=== PATIENT | female | born 1990 | race Caucasian/White ===

== ENCOUNTER 2017-09-02 15:40 | Emergency (ER) | payer OTHER ==
[2017-09-02 15:57] VITALS: BP 147/72; PULSE 86; TEMP 98.2; BMI 43.0
--- NOTE | 2017-09-02 15:57 | PDOC ---
Rapid Medical Evaluation Time Seen by Provider: 09/02/17 15:53 Medical Evaluation: Allergies Allergy/AdvReac Type Severity Reaction Status Date / Time No Known Allergies Allergy Verified 09/02/17 15:54 09/02/17 15:55 I have performed a brief in-person evaluation of this patient. 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 Sexually active w/ , no h/o stds Pertinent physical exam findings:will defer pelvic exam to FT provider I have ordered the following:ua/upreg/stds The patient will proceed to the ED for further evaluation. Discharge Disposition - Diagnosis Vaginal lesion - Referrals - Patient Instructions - Post Discharge Activity
--- NOTE | 2017-09-02 17:01 | PDOC ---
History of Present Illness - General Chief Complaint: Vaginal Sxs Stated Complaint: VAGINAL PROBLEM Time Seen by Provider: 09/02/17 15:53 History Source: Patient Exam Limitations: No Limitations - History of Present Illness Initial Comments: 09/02/17 16:56 27 yr old female no past medical with c/o burning on urination. Pt states he fiance has penile itching. Pt denies vaginal discharge states she sometimes has "cuts in her vagina" that heal on their own. no cuts today. no abd pain or back pain. Past History - Past Medical History Allergies/Adverse Reactions: Allergies Allergy/AdvReac Type Severity Reaction Status Date / Time No Known Allergies Allergy Verified 09/02/17 15:54 Home Medications: Ambulatory Orders NK [No Known Home Medication] 09/02/17 Asthma: No Cancer: No Cardiac Disorders: No CVA: No COPD: No Diabetes: No HTN: No Seizures: No Thyroid Disease: No Other medical history: DENIES. - Suicide/Smoking/Psychosocial Hx Smoking Status: No Smoking History: Never smoked Have you smoked in the past 12 months: No Number of Cigarettes Smoked Daily: 0 Hx Alcohol Use: No Drug/Substance Use Hx: No Substance Use Type: None Hx Substance Use Treatment: No Review of Systems - Review of Systems Able to Perform ROS?: Yes Is the patient limited Lao proficient: No Constitutional: No: Symptoms Reported HEENTM: No: Symptoms Reported Respiratory: No: Symptoms reported Cardiac (ROS): No: Symptoms Reported ABD/GI: No: Symptoms Reported : Yes: Symptoms Reported *Physical Exam - Vital Signs Last Vital Signs Temp Pulse Resp BP Pulse Ox 98.2 F 86 17 147/72 99 09/02/17 15:54 09/02/17 15:54 09/02/17 15:54 09/02/17 15:54 09/02/17 15:54 - Physical Exam General Appearance: Yes: Nourished, Appropriately Dressed HEENT: positive: EOMI, AINSLEY Neck: positive: Supple. negative: Tender Respiratory/Chest: positive: Lungs Clear, Normal Breath Sounds Cardiovascular: positive: Regular Rhythm, Regular Rate Female Pelvic Exam: positive: normal external exam, normal adnexa. negative: CMT, discharge Gastrointestinal/Abdominal: positive: Normal Bowel Sounds, Soft Musculoskeletal: positive: Normal Inspection Extremity: positive: Normal Capillary Refill, Normal Inspection, Normal Range of Motion Integumentary: positive: Normal Color, Dry, Warm Neurologic: positive: reservation agent II-XII NML intact, Fully Oriented, Alert, Normal Mood/ Affect, Normal Response, Motor Strength 06/25 Medical Decision Making - Medical Decision Making 09/02/17 17:03 cc: pain with urination no discharge or pain will send cultures , UA no need to treat as of now, will wait for results. *DC/Admit/Observation/Transfer Diagnosis at time of Disposition: Dysuria - Discharge Dispostion Disposition: HOME Condition at time of disposition: Good - Referrals - Patient Instructions Additional Instructions: we will call you with any positive results on the cultures done today make sure you follow with your children's tutor nursery - Post Discharge Activity
[2017-09-02 17:24] LABS: HCG,QUALITATIVE URINE NEGATIVE
[2017-09-02 17:54] LABS: URINE APPEARANCE SLCLOUDY; URINE BILIRUBIN NEGATIVE (<2.0 mg/dL); URINE COLOR YELLOW; URINE GLUCOSE (UA) NEGATIVE (NEGATIVE); URINE KETONE NEGATIVE (NEGATIVE); URINE LEUK ESTERASE NEGATIVE (NEGATIVE); URINE NITRITE NEGATIVE (NEGATIVE); URINE UROBILINOGEN NEGATIVE mg/dL (0.2-1.0)
[2017-09-02 17:59] LABS: URINE PROTEIN 1+ (NEGATIVE)
[2017-09-02 19:07] LABS: EPI CELLS FEW /HPF (FEW); URINE BACTERIA RARE /hpf (NONE SEEN); URINE MUCUS MANY
== END 2017-09-02 18:13 | disposition home or self-care (01) ==
LOC: JERFT 15:40
DX: N89.8 Other specified noninflammatory disorders of vagina (principal)
CPT/HCPCS: 36415; 81003; 81015; 84703; 87070; 87205; 87252; 87491; 87591; 99281-25

== ENCOUNTER 2018-03-03 18:44 | Emergency (ER) | payer OTHER ==
[2018-03-03 18:51] VITALS: BP 111/51; PULSE 76; TEMP 97.7; BMI 42.0
--- NOTE | 2018-03-03 18:51 | PDOC ---
Rapid Medical Evaluation Time Seen by Provider: 03/03/18 18:47 Medical Evaluation: Allergies Allergy/AdvReac Type Severity Reaction Status Date / Time No Known Allergies Allergy Verified 03/03/18 18:47 03/03/18 18:49 Pt c/o: nasal congestion and sinus pressure, no fever, took dayquil at 11am, no improvement Pt on brief exam: vss, lcta Pt ordered for: none' pt to proceed to the ED Discharge Disposition - Diagnosis Nasal congestion - Referrals - Patient Instructions - Post Discharge Activity
[2018-03-03] MEDS ORDERED: DEXAMETHASONE 4 MG TABLET (FP) PO ONE (19:43)
[2018-03-03] MEDS ORDERED: DEXAMETHASONE SOD PHOSPHATE 10 MG/1 ML VIAL ONE (19:49)
--- NOTE | 2018-03-03 19:58 | PDOC ---
History of Present Illness - General Chief Complaint: Cold Symptoms Stated Complaint: Cold Symptoms Time Seen by Provider: 03/03/18 18:47 History Source: Patient Exam Limitations: No Limitations - History of Present Illness Initial Comments: 03/03/18 19:57 HISTORY OF PRESENT ILLNESS: 27-year-old woman denies medical history presents emergency department for evaluation of nasal congestion, rhinorrhea, sore throat , dry cough, headaches and body aches for the past 4 days. 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 She denies any fevers, chills, chest pain, shortness of breath, nausea, vomiting. No recent travel or sick contacts. PAST MEDICAL HISTORY: Denies past medical history SURGICAL HISTORY: Denies ALLERGIES: No known drug allergies REVIEW OF SYSTEMS General/Constitutional: +fever. Denies weakness, weight change. HEENT: Denies change in vision. Denies ear pain or discharge. +sore throat. Cardiovascular: Denies chest pain or shortness of breath. Respiratory: Moist productive cough. Denies wheezing, or hemoptysis. Gastrointestinal: Denies nausea, vomiting, diarrhea or constipation. Denies rectal bleeding. Genitourinary: Denies dysuria, frequency, or change in urination. Musculoskeletal: +myalgias. Denies neck or back pain. Skin and breasts: Denies rash or easy bruising. Neurologic: Denies headache, vertigo, loss of consciousness, or loss of sensation. Psychiatric: Denies depression or anxiety. Endocrine: Denies increased thirst. Denies abnormal weight change. Hematologic/Lymphatic: Denies anemia, easy bleeding, or history of blood clots. Allergic/Immunologic: Denies hives or skin allergy. Denies latex allergy. PHYSICAL EXAM General Appearance: Well-appearing, appropriately dressed. No apparent distress , no intoxication. HEENT: EOMI, PERRLA, normal voice, TMs retracted bilaterally. No conjunctival pallor. No photophobia, scleral icterus. Oropharynx erythematous without lesions or exudate. Cobblestoning noted in the posterior. No nasal discharge present. Neck: Supple. Trachea midline. No tenderness, rigidity, carotid bruit, stridor , or thyromegaly. Nontender anterior cervical lymphadenopathy present. Respiratory/Chest: Lungs CTAB. No shortness of breath, chest tenderness, respiratory distress, accessory muscle use. No crackles, rales, rhonchi, stridor , wheezing, dullness Cardiovascular: RRR. S1, S2. No JVD, murmur, bradycardia, tachycardia. Vascular Pulses: Dorsalis-Pedis (R): 2+, Dorsalis-Pedis (L): 2+ Gastrointestinal/Abdominal: Normal bowel sounds. Abdomen soft, non-distended. No tenderness or rebound tenderness. No organomegaly, pulsatile mass, guarding, hernia, hepatomegaly, splenomegaly. Musculoskeletal/Extremities: Normal inspection. FROM of all extremities, normal capillary refill. Pelvis Stable. No CVA tenderness. No tenderness to extremities, pedal edema, swelling, erythema or deformity. Integumentary: Appropriate color, dry, warm. No cyanosis, erythema, jaundice or rash Neurologic: lead software architect II-XII intact. Fully oriented, alert. Appropriate mood/affect. Motor strength 5/5. No appreciable EOM palsy, facial droop or sensory deficit. Past History - Past Medical History Allergies/Adverse Reactions: Allergies Allergy/AdvReac Type Severity Reaction Status Date / Time No Known Allergies Allergy Verified 03/03/18 18:47 Home Medications: Ambulatory Orders NK [No Known Home Medication] 09/02/17 Asthma: No Cancer: No Cardiac Disorders: No CVA: No COPD: No Diabetes: No HTN: No Seizures: No Thyroid Disease: No - Suicide/Smoking/Psychosocial Hx Smoking Status: No Smoking History: Never smoked Have you smoked in the past 12 months: No Number of Cigarettes Smoked Daily: 0 Hx Alcohol Use: No Drug/Substance Use Hx: No Substance Use Type: None Hx Substance Use Treatment: No *Physical Exam - Vital Signs Last Vital Signs Temp Pulse Resp BP Pulse Ox 97.7 F 76 18 111/51 L 99 03/03/18 18:48 03/03/18 18:48 03/03/18 18:48 03/03/18 18:48 03/03/18 18:48 Moderate Sedation - Procedure Monitoring Vital Signs: Procedure Monitoring Vital Signs Temperature 97.7 F 03/03/18 18:48 Pulse Rate 76 03/03/18 18:48 Respiratory Rate 18 03/03/18 18:48 Blood Pressure 111/51 L 03/03/18 18:48 O2 Sat by Pulse Oximetry (%) 99 03/03/18 18:48 ED Treatment Course - Medications Given in the ED: ED Medications Discontinued Medications Generic Name Dose Route Start Last Admin Trade Name Derik PRN Reason Stop Dose Admin Dexamethasone 10 mg 03/03/18 19:43 03/03/18 19:54 Decadron - PO 03/03/18 19:44 10 mg ONCE ONE Administration Medical Decision Making - Medical Decision Making 03/03/18 20:47 A/P: 27-year-old female with 4 days of upper respiratory illness Strep testing Reassess Strep testing was negative we'll discharge the patient home with symptomatic treatment.I discussed the physical exam findings, ancillary test results and final diagnoses with the patient. I answered all of the patient's questions. The patient was satisfied with the care received and felt comfortable with the discharge plan and treatment plan. The patient will call their primary care physician within 24 hours to arrange follow-up and will return to the Emergency Department with any new, persistent or worsening symptoms. *DC/Admit/Observation/Transfer Diagnosis at time of Disposition: URI (upper respiratory infection) Qualifiers: URI type: acute nasopharyngitis (common cold) Qualified Code(s): J00 - Acute nasopharyngitis [common cold] - Discharge Dispostion Disposition: HOME Condition at time of disposition: Stable Decision to Admit order: No - Referrals Referrals: Kiki Ramírez [Primary Care Provider] - - Patient Instructions Additional Instructions: Rest, drink lots of fluids: Teas, water, soups, Pedialyte Saltwater gargles Steamy showers/seem to face break up mucus Avoid contact with others until fevers and cough resolved Lots of handwashing and good hygiene Continue [id number] medications for symptomatic relief Tylenol or Motrin for fever and pain Followup with private physician in one to 2 days as needed Return to emergency department for worsened symptoms, fevers, dehydration - Post Discharge Activity
== END 2018-03-03 20:51 | disposition home or self-care (01) ==
LOC: JERFT 18:44
DX: J06.9 Acute upper respiratory infection, unspecified (principal); J00 Acute nasopharyngitis [common cold]
CPT/HCPCS: 87070; 87077; 87880; 99281-25

== ENCOUNTER 2019-04-20 05:35 | Inpatient (IN) | payer OTHER ==
[~2019-04-20 05:35] MED LIST: CITRIC ACID/SODIUM CITRATE 30 ML UNIT-DOSE CUP PO ONE; ELECTROLYTE-148 SOLN 500 ML IV ONE
[2019-04-20] MEDS ORDERED: ELECTROLYTE-148 SOLN 1,000 ML IV SCH ×2 (06:00→07:30)
[2019-04-20 06:25] VITALS: BMI 44.5
[2019-04-20] MEDS ORDERED: morphine SULFATE/PF 0.5 MG/ML (2cc Syringe - QUVA) ONE (07:34)
[2019-04-20] MEDS ORDERED: ceFAZolin SODIUM 1 GM VIAL ONE (07:34)
[2019-04-20] MEDS ORDERED: PHENYLEPHRINE HCL 10 MG/1 ML SINGLE DOSE VIAL ONE (07:34)
--- NOTE | 2019-04-20 07:36 | HP ---
Past Medical History - Admission Chief Complaint: Elective History of Present Illness: 28 yo , @ 39 weeks gestation, EDC 04/29/19, with 2 previous , is pre op for repeat . History Source: Patient Limitations to Obtaining History: No Limitations - Past Medical History ...: 3 ...Para: 2 ...Term: 2 ...: 0 ...Spon : 0 ...Induced : 0 ...Multiple Gestation: 0 ...LMP: 06/28/18 ... Weeks Gestation by Dates: 38.6 ...EDC by Dates: 04/29/19 ...EDC by Sono: 04/29/19 - Past Surgical History Past Surgical History: Yes: Hx Myomectomy: No Hx Transabdominal Cerclage: No - Smoking History Smoking history: Never smoked Have you smoked in the past 12 months: No Aproximately how many cigarettes per day: 0 - Alcohol/Substance Use Hx Alcohol Use: No History of Substance Use: reports: None - Social History Usual Living Arrangement: Yes: With Significant Other History of Recent Travel: No Home Medications - Allergies Allergies/Adverse Reactions: Allergies Allergy/AdvReac Type Severity Reaction Status Date / Time No Known Allergies Allergy Verified 03/22/19 11:26 - Home Medications Home Medications: Ambulatory Orders Iron 1 tab PO BID 04/20/19 Vitamins (Sjr) - 1 tab PO DAILY 04/20/19 Review of Systems - Review of Systems Constitutional: reports: No Symptoms Eyes: reports: No Symptoms HENT: reports: No Symptoms Neck: reports: No Symptoms Cardiovascular: reports: No Symptoms Respiratory: reports: No Symptoms Gastrointestinal: reports: No Symptoms Genitourinary: reports: No Symptoms Breasts: reports: No Symptoms Reported Musculoskeletal: reports: No Symptoms Neurological: reports: No Symptoms Psychiatric: reports: No Symptoms Pain Intensity: 0 Physical Exam - Maternity Vital Signs: Vital Signs Temperature 98.2 F 04/20/19 06:17 Pulse Rate 93 H 04/20/19 06:17 Respiratory Rate 04/20/19 06:17 Blood Pressure 114/66 04/20/19 06:17 O2 Sat by Pulse Oximetry (%) Constitutional: Yes: No Distress Eyes: Yes: Conjunctiva Clear HENT: Yes: Atraumatic Neck: Yes: Supple Cardiovascular: Yes: Regular Rate and Rhythm Lungs: Clear to auscultation - Abdominal Exam/OB Number of Fetuses: Single Presentation: Vertex - Vaginal Exam/OB Vaginal Bleediing: No Speculum Exam: No - Physical Exam Musculoskeletal: Yes: WNL Extremities: Yes: WNL ...Motor Strength: WNL Psychiatric: Yes: Alert, Oriented Problem List - Problems (1) Previous section Problems reviewed: Yes Code(s): Z98.891 - HISTORY OF UTERINE SCAR FROM PREVIOUS SURGERY Assessment/Plan 39 weeks gestation Previous Pre op for repeat Consent signed Anesthesia to see patient
[2019-04-20] MEDS ORDERED: OXYTOCIN 20 UNITS in 0.9% NS 40 UNIT/2,000 ML INFUS.BAG IV ONE (07:39)
[2019-04-20] MEDS ORDERED: CITRIC ACID/SODIUM CITRATE 30 ML UNIT-DOSE CUP PO ONE (08:00)
[2019-04-20] MEDS ORDERED: DEXAMETHASONE SOD PHOSPHATE 4 MG/1 ML VIAL ONE (08:07)
[2019-04-20] MEDS ORDERED: MIDAZOLAM HCL 2 MG/2 ML SINGLE DOSE VIAL ONE (08:19)
[2019-04-20] MEDS ORDERED: KETOROLAC TROMETHAMINE 30 MG/1 ML VIAL ONE (08:32)
[2019-04-20] MEDS ORDERED: METHYLERGONOVINE MALEATE 0.2 MG/1 ML AMP IM PRN (09:09)
[2019-04-20] MEDS ORDERED: SENNOSIDES/DOCUSATE COMBO (SENNA PLUS) TABLET (UD) PO PRN (09:09)
[2019-04-20] MEDS ORDERED: IBUPROFEN 800 MG/8 ML IJ IVPB PRN (09:09)
--- NOTE | 2019-04-20 09:12 | OP ---
Operative Note - Note: Operative Date: 04/20/19 Pre-Operative Diagnosis: Elective Operation: Repeat Low Tranverse Findings: Large baby boy in cephalic position Post-Operative Diagnosis: Same as Pre-op Surgeon: Laura Arvizu Regulator Assembler: Giuseppe Garcia Anesthesia: Spinal Specimens Removed: Placenta Estimated Blood Loss (mls): 700 Operative Report Dictated: Yes
[2019-04-20] MEDS ORDERED: OXYTOCIN 20 UNITS in 0.9% NS 20 UNIT/1,000 ML INFUS.BAG IV SCH (09:15)
[2019-04-20] MEDS ORDERED: ONDANSETRON 4 MG/2 ML VIAL IVPUSH PRN (09:33)
[2019-04-20] MEDS: PRENATAL VITAMINS W/ FOLIC ACID TABLET (FP) PO SCH (10:06)
[2019-04-20] MEDS: FERROUS SO4 325 MG TABLET (FP) PO SCH ×2 (10:06→22:24)
[2019-04-21] MEDS: oxyCODONE HCL 5 MG TABLET PO PRN ×2 (08:02→18:26)
[2019-04-21] MEDS: SIMETHICONE 80 MG TAB.CHEW (FP) PO PRN ×2 (08:03→18:27)
[2019-04-21] MEDS: IBUPROFEN 600 MG TABLET (FP) PO PRN ×2 (08:03→18:27)
[2019-04-21 08:31] LABS: BASO % 0.2 % (0-2.0); EOS % 0.1 % (0-4.5); HEMOGLOBIN 8.1 GM/dL (10.7-15.3); LYMPH % 21.9 % (8-40); MCH 24.8 pg (25.7-33.7); MCHC 32.3 g/dl (32.0-36.0); MEAN CELL VOLUME 76.7 fl (80-96); MEAN PLT VOLUME 7.3 fl (7.5-11.1); MONO % 5.6 % (3.8-10.2); NEUT % 72.2 % (42.8-82.8); PLATELET COUNT 202 K/MM3 (134-434); RBC 3.26 M/mm3 (3.60-5.2); RDW 17.2 % (11.6-15.6); WHITE BLOOD COUNT 10.4 K/mm3 (4.0-10.0)
--- NOTE | 2019-04-21 08:32 | PN ---
Progress Note (short form) - Note Progress Note: Anesthesia/pain Pt seen and examined S:Alert and awake comfortable O: Vital Signs Temperature 97.7 F 04/21/19 06:00 Pulse Rate 78 04/21/19 06:00 Respiratory Rate 20 04/21/19 06:00 Blood Pressure 111/53 L 04/21/19 06:00 O2 Sat by Pulse Oximetry (%) 97 04/20/19 10:05 A/P: Current Active Problems Previous section (Acute) s/p c section Doing well post op Continue current care Raciel Chawla MD
[2019-04-21] MEDS ORDERED: BISACODYL 10 MG SUPP.RECT RC PRN (09:09)
[2019-04-21] MEDS: FERROUS SO4 325 MG TABLET (FP) PO SCH ×2 (09:59→21:59)
[2019-04-21] MEDS: PRENATAL VITAMINS W/ FOLIC ACID TABLET (FP) PO SCH (09:59)
[2019-04-21] MEDS ORDERED: FLU VACC QS2019-20(6MOS UP)/PF 60 MCG/0.5 ML SYRINGE IM ONE (10:00)
[2019-04-21] MEDS ORDERED: DIPHTH,PERTUSS(ACELL),TET 0.5 ML DISP.SYRIN IM ONE (10:00)
[2019-04-21] MEDS ORDERED: FLU VACCINE QUAD 60 MCG/0.5 ML (MDV 19-20) IM ONE (10:00)
[2019-04-22] MEDS: oxyCODONE HCL 5 MG TABLET PO PRN ×3 (00:21→23:42)
[2019-04-22] MEDS: IBUPROFEN 600 MG TABLET (FP) PO PRN ×2 (04:41→18:50)
[2019-04-22] MEDS: SIMETHICONE 80 MG TAB.CHEW (FP) PO PRN ×3 (04:41→18:50)
--- NOTE | 2019-04-22 04:56 | PN ---
Post Progress Note - Subjective Subjective: Status post repeat . Doing well Post Day: 2 Type of Delivery: Repeat C/S Vital Signs: Vital Signs Temperature 97.9 F 04/21/19 22:00 Pulse Rate 90 04/21/19 22:00 Respiratory Rate 20 04/21/19 22:00 Blood Pressure 117/62 04/21/19 22:00 O2 Sat by Pulse Oximetry (%) 98 04/21/19 21:00 Uterus: Yes: Fundus below umbilicus Incision: Yes: Dressing dry and intact Abdomen/GI: Yes: Abdomen soft, Tolerating PO Lochia: Yes: Rubra Lochia, amount: Small Extremities: Yes: Calves non-tender Perineum: Yes: Intact Activity: Ambulating - Labs Labs: CBC WBC 10.4 K/mm3 (4.0-10.0) H 04/21/19 07:58 RBC 3.26 M/mm3 (3.60-5.2) L 04/21/19 07:58 Hgb 8.1 GM/dL (10.7-15.3) L 04/21/19 07:58 Hct 25.0 % (32.4-45.2) L D 04/21/19 07:58 MCV 76.7 fl (80-96) L 04/21/19 07:58 MCH 24.8 pg (25.7-33.7) L 04/21/19 07:58 MCHC 32.3 g/dl (32.0-36.0) 04/21/19 07:58 RDW 17.2 % (11.6-15.6) H 04/21/19 07:58 Plt Count 202 K/MM3 (134-434) D 04/21/19 07:58 MPV 7.3 fl (7.5-11.1) L 04/21/19 07:58 Absolute Neuts (auto) 7.5 K/mm3 (1.5-8.0) 04/21/19 07:58 Neutrophils % 72.2 % (42.8-82.8) 04/21/19 07:58 Lymphocytes % 21.9 % (8-40) 04/21/19 07:58 Monocytes % 5.6 % (3.8-10.2) 04/21/19 07:58 Eosinophils % 0.1 % (0-4.5) 04/21/19 07:58 Basophils % 0.2 % (0-2.0) 04/21/19 07:58 Nucleated RBC % 0 % (0-0) 04/21/19 07:58 Problem List - Problems (1) Previous section Problems reviewed: Yes Code(s): Z98.891 - HISTORY OF UTERINE SCAR FROM PREVIOUS SURGERY (2) Status post repeat low transverse section Problems reviewed: Yes Code(s): Z98.891 - HISTORY OF UTERINE SCAR FROM PREVIOUS SURGERY Assessment/Plan Status post repeat Low Transverse Ambulation Analgesia as needed Continue routine post op care
[2019-04-22] MEDS: FERROUS SO4 325 MG TABLET (FP) PO SCH ×2 (09:20→21:28)
[2019-04-22] MEDS: PRENATAL VITAMINS W/ FOLIC ACID TABLET (FP) PO SCH (09:20)
[2019-04-23] MEDS: oxyCODONE HCL 5 MG TABLET PO PRN (04:38)
[2019-04-23] MEDS: IBUPROFEN 600 MG TABLET (FP) PO PRN ×2 (04:39→10:41)
--- NOTE | 2019-04-23 07:29 | DS ---
Physical Exam-INVESTMENT ACCOUNTING CLERK Vital Signs: Vital Signs Temperature 97.8 F 04/22/19 21:15 Pulse Rate 96 H 04/22/19 21:15 Respiratory Rate 20 04/22/19 21:15 Blood Pressure 128/75 04/22/19 21:15 O2 Sat by Pulse Oximetry (%) 98 04/22/19 20:38 Constitutional: Yes: Well Nourished, No Distress Gastrointestinal: Yes: WNL, Soft ....Post : Yes: Uterus firm, Uterus non-tender Breast(s): Yes: WNL Musculoskeletal: Yes: WNL Delivery - Delivery Type of Anesthesia: Spinal EBL (cc): 700 Delivery, Single - Stages of Labor Date of Delivery: 04/20/19 Time of Delivery: 08:14 Time Placenta Delivered: 08:15 - Condition of Infant General Milling Superintendent/Duct Maker Present: Yes Name: Anusha Sultana Gender: Male Weight: 8 lb 5 oz Position: Right, OT Total Hours ROM (Hrs/Mins): 0Hrs/3Mins - 1 Minute Total Score: 9 5 Minutes Total Score: 9 - [place] Feeding Plan Initial Plan: Elected not to breastfeed exclusively throughout hospitalization Discharge Summary Problems reviewed: Yes Reason For Visit: ADMIT SCHEDULED Current Active Problems Previous section (Acute) Status post repeat low transverse section (Acute) Procedures: Principal: Repeat Section Condition: Good - Instructions Referrals: Laura Arvizu MD [Staff Physician] - Disposition: HOME - Home Medications Comprehensive Discharge Medication List: Ambulatory Orders Iron 1 tab PO BID 04/20/19 Vitamins (Sjr) - 1 tab PO DAILY 04/20/19
[2019-04-23 07:35] LABS: BASO % 0.6 % (0-2.0); EOS % 1.8 % (0-4.5); HEMATOCRIT 26.3 % (32.4-45.2); HEMOGLOBIN 8.5 GM/dL (10.7-15.3); LYMPH % 32.6 % (8-40); MCH 24.9 pg (25.7-33.7); MCHC 32.4 g/dl (32.0-36.0); MEAN CELL VOLUME 76.8 fl (80-96); MEAN PLT VOLUME 7.3 fl (7.5-11.1); MONO % 7.3 % (3.8-10.2); NEUT % 57.7 % (42.8-82.8); PLATELET COUNT 247 K/MM3 (134-434); RBC 3.43 M/mm3 (3.60-5.2); RDW 17.2 % (11.6-15.6); WHITE BLOOD COUNT 5.9 K/mm3 (4.0-10.0)
[2019-04-23 09:13] VITALS: BP 104/60; PULSE 79; TEMP 97.6
[2019-04-23] MEDS: SIMETHICONE 80 MG TAB.CHEW (FP) PO PRN (10:43)
[2019-04-23] MEDS: FERROUS SO4 325 MG TABLET (FP) PO SCH (10:43)
[2019-04-23] MEDS: PRENATAL VITAMINS W/ FOLIC ACID TABLET (FP) PO SCH (10:43)
--- NOTE | 2019-04-23 21:25 | OP ---
DATE OF OPERATION: 04/20/2019 PREOPERATIVE DIAGNOSIS: A 39-week gestation with previous section. POSTOPERATIVE DIAGNOSIS: A 39-week gestation with previous section. PROCEDURE: Repeat low transverse section. SURGEON: Laura Arvizu MD ENERGY CROP FARMER: ANITRA Zavaleta ANESTHESIA: Spinal. COMPLICATIONS: None. ESTIMATED BLOOD LOSS: 700 mL. DESCRIPTION OF PROCEDURE: Patient was taken to the operating room where spinal anesthesia was administered. Patient was then prepped and draped in proper sterile fashion. A Pfannenstiel skin incision was made and carried down to the underlying layer of fascia. The fascia was incised in the midline and extended laterally. The superior aspect of the fascial incision was then grasped with a Seymour clamp, elevated, and the rectus muscle dissected off bluntly. Attention was then turned to the inferior aspect of the fascial incision which, in a similar fashion, was then grasped with a Seymour clamp, elevated, and the rectus muscle was dissected off bluntly. The rectus muscle was then in the midline. The peritoneum identified and entered sharply with the Metzenbaum scissors. This incision was extended superiorly and inferiorly with good visualization of the bladder. A bladder blade was inserted, and the vesicouterine peritoneum was then grasped with a pickup and entered sharply with the Metzenbaum scissors. This incision was extended laterally and a bladder flap created digitally. The bladder blade was reinserted, and the lower uterine segment was then incised with a 10 blade. This incision was extended laterally and the head delivered atraumatically. Nose and mouth were suctioned and the cord clamped and cut. The was handed to the waiting legal director. The placenta was removed manually. The uterus exteriorized and cleared of all clots and debris. The uterine incision was repaired using a 0 Biosyn in a running locked fashion. A second layer of the same suture was used as a means to provide excellent hemostasis. The pelvis was then completely irrigated. The uterus was returned to the abdomen. The peritoneum was closed using 0 Biosyn, and the fascia was reapproximated using 0 Vicryl in a running fashion. The skin was closed in a subcuticular fashion using 3-0 Vicryl. Patient tolerated the procedure well. Patient was then taken to PACU in stable condition. PATHOLOGY: Placenta. Quirino [id number]
--- NOTE | 2019-04-27 17:53 | PATH ---
Surgical Pathology Report Patient Name: RHONDA MUHAMMAD Med. Rec. #: [id number] /Age/Gender: 1990 (Age: 28) / F Account: [id number] Location: [facility] OBS/UPPER STITCHER Taken: 04/20/2019 Received: 04/23/2019 Reported: 04/27/2019 Physicians: Laura Arvizu M.D. Specimen(s) Received PLACENTA Clinical History , 38.6 weeks Final Diagnosis PLACENTA, SECTION: 468 G THIRD TRIMESTER PLACENTA WITH TRIVASCULAR UMBILICAL CORD AND UNREMARKABLE PLACENTAL MEMBRANES. Electronically Signed Alice Turcios M.D. Gross Description The specimen is received fresh labeled placenta and is a 468 gram, 17.0 x 16.0 x 2.8 cm. placenta with attached membranes and umbilical cord. The attached membranes are reese, thick, cloudy and insert marginally. The umbilical cord measures 30 cm. in length and averages 1 cm. in diameter. The cord inserts eccentrically, 6.5 cm. to the nearest margin. No true knots or strictures are identified. Cut surface of the umbilical cord reveals 3 vessels. The surface is gallardo-blue with minimal fibrin deposition and appropriate caliber vessels. The maternal surface is red-brown with focal defects. Sectioning reveals red-brown, spongy parenchyma. No lesions are identified. Vp Outcomes sections are submitted in three cassettes as follows: 1- membrane rolls and umbilical cord; 2-3- full thickness sections of placenta. /04/26/2019 [facility]04/26/2019
== END 2019-04-23 12:45 | disposition home or self-care (01) | DRG 540 ==
LOC: JLDR 05:35 → J3W 11:02
PROVIDERS: ADMIT Obstetrics & Gynecology; ATTEND Obstetrics & Gynecology
PROC: 10D00Z1 Extraction of Products of Conception, Low, Open Approach (ICD-10-PCS; principal; 2019-04-20)
PROC: 10907ZC Drainage of Amniotic Fluid, Therapeutic from Products of Conception, Via Natural or Artificial Opening (ICD-10-PCS; 2019-04-20)
DX: O34.211 Maternal care for low transverse scar from previous cesarean delivery (principal); Z3A.39 39 weeks gestation of pregnancy; Z37.0 Single live birth
CPT/HCPCS: 36415; 85025; 88307-TC; 90686; 90715

== ENCOUNTER 2020-05-01 13:07 | Emergency (ER) | payer OTHER ==
[2020-05-01 13:17] VITALS: BP 102/57; PULSE 72; TEMP 98.6; BMI 44.9
== END 2020-05-01 14:00 | disposition home or self-care (01) ==
LOC: JERFT 13:07
DX: B02.9 Zoster without complications (principal)
CPT/HCPCS: 99282-25

== ENCOUNTER 2021-07-08 16:14 | Emergency (ER) | payer OTHER ==
[2021-07-08 17:15] VITALS: BP 111/89; PULSE 83; TEMP 98.6; BMI 43.0
[2021-07-08] MEDS ORDERED: DIPHTH,PERTUSS(ACELL),TET 0.5 ML DISP.SYRIN IM ONE ×2 (19:01→19:10)
[2021-07-08] MEDS ORDERED: CLINDAMYCIN HCL 300 MG CAPSULE PO ONE (19:01)
[2021-07-08] MEDS ORDERED: CLINDAMYCIN HCL 150 MG CAPSULE (FP) ONE (19:10)
== END 2021-07-08 19:20 | disposition home or self-care (01) ==
LOC: JER 16:14 → JERFT 16:14
PROC: 3E0234Z Introduction of Serum, Toxoid and Vaccine into Muscle, Percutaneous Approach (ICD-10-PCS; principal; 2021-07-08)
DX: S71.102A Unspecified open wound, left thigh, initial encounter (principal); W50.3XXA Accidental bite by another person, initial encounter; Y92.9 Unspecified place or not applicable
CPT/HCPCS: 90715; 99283-25